=== PATIENT | male | born 1995 | race African-American/Black ===

== ENCOUNTER 2016-07-12 14:21 | Emergency (ER) | payer SELFPAY ==
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
[2016-07-12 14:52] LABS: ABSOLUTE EOSINOPHILS # (AUTO) 0.1 10^3/uL (0.0-0.6); ABSOLUTE LYMPHOCYTES (AUTO) 2.4 10^3/uL (0.5-4.7); ABSOLUTE MONOCYTES (AUTO) 0.8 10^3/uL (0.1-1.4); ABSOLUTE NEUT (AUTO) 9.7 10^3/uL (1.7-8.2); BASOPHILS % (AUTO) 0.3 % (0-2); EOSINOPHILS % (AUTO) 0.9 % (0-6); HEMATOCRIT 41.4 % (37.9-51.0); HEMOGLOBIN 13.4 g/dL (13.5-17.0); HGB HCT DIFFERENCE -1.2; LYMPHOCYTES % (AUTO) 18.5 % (13-45); MEAN CORPUSCULAR HEMOGLOBIN 23.8 pg (27.0-33.4); MEAN CORPUSCULAR HGB CONC 32.3 g/dL (32.0-36.0); MEAN CORPUSCULAR VOLUME 74 fl (80-97); MONOCYTES % (AUTO) 5.9 % (3-13); RED BLOOD COUNT 5.61 10^6/uL (4.35-5.55); SEGMENTED NEUTROPHILS % (AUTO) 74.4 % (42-78)
--- NOTE | 2016-07-12 15:01 | ER Document Report ---
ED GI/ - General Chief Complaint: Abdominal Pain Stated Complaint: BODY ACHES Time seen by provider: 15:01 Mode of Arrival: Ambulatory Information source: Patient Notes: 20 yo morbidlhy obese, non smoking, non dm, non htn, non hyperlipedemic with no family hx of CAD male tried to go to work today but had to come to ER due to upper abdominal pain for 3 days, mild nausea today, right upper retrosternal chest pain intermitent since 12:00, each episode for 5 minutes. No aggrevating or alleviating sx. he also wants his right eye checked since he was messing around with girlfriend today he accidentally hit the door knob at 10 am. No fever. No recent travel, leg pain, or immobility. No shortness of breath. TRAVEL OUTSIDE OF THE [place] IN LAST 30 DAYS: No - Related Data Allergies/Adverse Reactions: No Known Allergies Allergy (Verified 07/12/16 14:28) Past Medical History - General Information source: Patient - Social History Smoking Status: Never Smoker Chew tobacco use (# tins/day): No Frequency of alcohol use: None Drug Abuse: None Lives with: Spouse/Significant other Family History: Reviewed & Not Pertinent, Other - gout Patient has suicidal ideation: No Patient has homicidal ideation: No - Medical History Medical History: Negative Renal/ Medical History: Denies: Hx Peritoneal Dialysis Surgical Hx: Negative - Immunizations Hx Diphtheria, Pertussis, Tetanus Vaccination: Yes Review of Systems - Review of Systems Constitutional: No symptoms reported EENT: No symptoms reported Cardiovascular: See HPI Respiratory: No symptoms reported Gastrointestinal: See HPI Genitourinary: No symptoms reported Male Genitourinary: No symptoms reported Musculoskeletal: No symptoms reported Skin: No symptoms reported Hematologic/Lymphatic: No symptoms reported Neurological/Psychological: No symptoms reported Physical Exam - Vital signs Vitals: Temp Pulse Resp BP Pulse Ox 98.8 F 98 18 146/89 H 98 07/12/16 14:25 07/12/16 14:25 07/12/16 14:25 07/12/16 14:25 07/12/16 14:25 Interpretation: Normal - General General appearance: Appears well, Alert In distress: None Notes: obese - HEENT Head: Normocephalic, Atraumatic Eyes: Normal Conjunctiva: Normal Pupils: PERRL Mucous membranes: Normal Pharynx: Normal Neck: Supple. No: Thyromegally - Respiratory Respiratory status: No respiratory distress Chest status: Nontender Breath sounds: Normal Chest palpation: Normal - Cardiovascular Rhythm: Regular Heart sounds: Normal auscultation Murmur: No - Abdominal Inspection: Normal Distension: No distension Bowel sounds: Normal Tenderness: Tender - upper abdomen, moreso RUQ and epigastric. No: Ndiaye's sign Organomegaly: No organomegaly. No: Hepatomegaly, Splenomegaly - Back Back: Normal, Nontender. No: CVA tenderness - Extremities General upper extremity: Normal inspection, Nontender, Normal color, Normal ROM , Normal temperature General lower extremity: Normal inspection, Nontender, Normal color, Normal ROM , Normal temperature, Normal weight bearing. No: Ai's sign - Neurological Neuro grossly intact: Yes Cognition: Normal Orientation: AAOx4 [place] Coma Scale Eye Opening: Spontaneous Nathaniel Coma Scale Verbal: Oriented [place] Coma Scale Motor: Obeys Commands [place] Coma Scale Total: 15 Speech: Normal Motor strength normal: LUE, RUE, LLE, RLE Sensory: Normal - Psychological Associated symptoms: Normal affect, Normal mood - Skin Skin Temperature: Warm Skin Moisture: Dry Skin Color: Normal Skin irregularity: negative: Rash Course - Re-evaluation Re-evalutation: 07/12/16 16:[address] agee , EKG NSR, discussed case with him, referring for outpt Hida Scan, return if worse. Labs negative and chest x-ray is negative 07/12/16 16:47 - Vital Signs Vital signs: Temp Pulse Resp BP Pulse Ox 98.7 F 86 18 151/93 H 99 07/12/16 17:27 07/12/16 17:27 07/12/16 17:27 07/12/16 17:27 07/12/16 17:27 - Laboratory Result Diagrams: 07/12/16 14:35 07/12/16 14:35 Laboratory results interpreted by me: 07/12/16 07/12/16 14:35 14:35 WBC 13.0 H RBC 5.61 H Hgb 13.4 L MCV 74 L MCH 23.8 L RDW 16.0 H Absolute Neutrophils 9.7 H Sodium 147.0 H Carbon Dioxide 31 H Glucose 116 H Calcium 10.4 H Discharge - Discharge Clinical Impression: upper abdominal pain, Fatty liver Chest pain Qualifiers: Chest pain type: unspecified Qualified Code(s): R07.9 - Chest pain, unspecified Condition: Stable Disposition: HOME, SELF-CARE Instructions: Evaluation of Upper Abdominal Pain ([facility]), Chest Pain of Unclear Cause ([facility]), Contusion ([facility]), Family Physicians / Practices, Gastroenterology Additional Instructions: to er if worse outpatient HIDA scan with ejection fraction to evaluate the gallbladder functioning see outpatient surgeon if your gallbladder does not function well see lapel baster if you persist having upper abdominal pain low fat diet, eat few calories daily to lose weight see family practice doctor for your care Please complete the patient satisfaction survey if you get one, and return it.. If you do not receive a survey, then you can go to the [facility] website, [email or web address] and place your comments about your very good care. Thank you very much. It was a pleasure being your medical provider today. Forms: Return to Work, Follow-Up Outpatient Testing
[2016-07-12 15:10] LABS: ALANINE AMINOTRANSFERASE 59 U/L (21-72); ALBUMIN 4.5 g/dL (3.5-5.0); ALKALINE PHOSPHATASE 82 U/L (38-126); ANION GAP 12 (5-19); ASPARTATE AMINO TRANSFERASE 34 U/L (17-59); BILIRUBIN,TOTAL 0.7 mg/dL (0.2-1.3); BLOOD UREA NITROGEN 11 mg/dL (7-20); CALCIUM 10.4 mg/dL (8.4-10.2); CARBON DIOXIDE 31 mmol/L (22-30); CHLORIDE 104 mmol/L (98-107); CREATININE RESULT 0.86 mg/dL (0.52-1.25); GLUCOSE 116 mg/dL (75-110); LIPASE 68.6 U/L (23-300); POTASSIUM 4.2 mmol/L (3.6-5.0); TOTAL PROTEIN 7.8 g/dL (6.3-8.2)
[2016-07-12 15:33] LABS: APPEARANCE,URINE CLEAR; BILIRUBIN,URINE NEGATIVE (NEGATIVE); GLUCOSE, URINE NEGATIVE (NEGATIVE); KETONES,URINE NEGATIVE (NEGATIVE); LEUKOCYTE ESTERASE,URINE NEGATIVE (NEGATIVE); NITRITE,URINE NEGATIVE (NEGATIVE); PROTEIN,URINE NEGATIVE (NEGATIVE); URINE SPECIFIC GRAVITY 1.009; UROBILINOGEN,URINE NEGATIVE mg/dL (<2.0)
[2016-07-12 15:48] LABS: URINE BARBITURATES SCREEN NEGATIVE; URINE METHADONE SCREEN NEGATIVE; URINE OPIATES LOW NEGATIVE; URINE PHENCYCLIDINE SCREEN NEGATIVE
[2016-07-12 17:33] VITALS: BP 151/93
--- NOTE | 2016-07-13 09:22 | EKG REPORT ---
SEVERITY:- NORMAL ECG - SINUS RHYTHM : Confirmed by: Jae Casey MD 13-Jul-2016 09:22:08
== END 2016-07-12 17:27 | disposition home or self-care (01) ==
LOC: ER 14:21
DX: K76.0 Fatty (change of) liver, not elsewhere classified (principal); R10.10 Upper abdominal pain, unspecified; R07.9 Chest pain, unspecified; E66.01 Morbid (severe) obesity due to excess calories; Z68.43 Body mass index [BMI] 50.0-59.9, adult; R11.0 Nausea
CPT/HCPCS: 36415; 71020; 76705; 80053; 80307; 81001; 83690; 84484; 85025; 93005; 93010; 99285

== ENCOUNTER 2017-01-12 12:56 | Emergency (ER) | payer OTHER ==
--- NOTE | 2017-01-12 13:42 | ER Document Report ---
ED General - General Chief Complaint: Feet Swelling Stated Complaint: FEET SWELLING Time Seen by Provider: 01/12/17 13:31 Mode of Arrival: Ambulatory Information source: Patient Notes: 21-year-old male presents with complains of bilateral lower extremity edema of 2 week duration. Patient denies any DVT PE risk factors. Patient notes symptoms worsen after standing on his feet for 12 hours and then improved when he is lying flat. TRAVEL OUTSIDE OF THE [place] IN LAST 30 DAYS: No - HPI Onset: Other - 2 weeks duration Onset/Duration: Waxing and waning Quality of pain: Sharp Severity: Mild Pain Level: 1 Associated symptoms: Leg swelling Exacerbated by: Standing, Walking Relieved by: Supine Similar symptoms previously: Yes Recently seen / treated by doctor: No - Related Data Allergies/Adverse Reactions: No Known Allergies Allergy (Verified 01/12/17 13:22) Past Medical History - Social History Smoking Status: Never Smoker Cigarette use (# per day): No Chew tobacco use (# tins/day): No Smoking Education Provided: No Frequency of alcohol use: None Drug Abuse: None Family History: Reviewed & Not Pertinent, Other - gout Patient has suicidal ideation: No Patient has homicidal ideation: No Renal/ Medical History: Denies: Hx Peritoneal Dialysis Surgical Hx: Negative - Immunizations Hx Diphtheria, Pertussis, Tetanus Vaccination: Yes Review of Systems - Review of Systems Notes: REVIEW OF SYSTEMS: CONSTITUTIONAL : Denies fever, chills, or sweats. Denies recent illness. EENT: Denies eye, ear, throat, or mouth pain or symptoms. Denies nasal or sinus congestion or discharge. Denies throat, tongue, or mouth swelling or difficulty swallowing. CARDIOVASCULAR: Denies chest pain. Denies palpitations or racing or irregular heart beat. Admits to bilateral ankle edema foot edema RESPIRATORY: Denies cough, cold, or chest congestion. Denies shortness of breath, difficulty breathing, or wheezing. GASTROINTESTINAL: Denies abdominal pain or distention. Denies nausea, vomiting , or diarrhea. Denies blood in vomitus, stools, or per rectum. Denies black, tarry stools. Denies constipation. GENITOURINARY: Denies difficulty urinating, painful urination, burning, frequency, blood in urine, or discharge. MUSCULOSKELETAL: Denies back or neck pain or stiffness. Denies joint pain or swelling. SKIN: Denies rash, lesions or sores. HEMATOLOGIC : Denies easy bruising or bleeding. LYMPHATIC: Denies swollen, enlarged glands. NEUROLOGICAL: Admits to feeling foot fall asleep when there is swelling PSYCHIATRIC: Denies anxiety or stress. Denies depression, suicidal ideation, or homicidal ideation. ALL OTHER SYSTEMS REVIEWED AND NEGATIVE. Dictation was performed using [employer] voice recognition software PHYSICAL EXAMINATION: GENERAL: Obese male well-appearing HEAD: Atraumatic, normocephalic. EYES: Pupils equal round and reactive to light, extraocular movements intact, sclera anicteric, conjunctiva are normal. ENT: Nares patent, oropharynx clear without exudates. Moist mucous membranes. NECK: Normal range of motion, supple without lymphadenopathy LUNGS: Breath sounds clear to auscultation bilaterally and equal. No wheezes rales or rhonchi. HEART: Regular rate and rhythm without murmurs ABDOMEN: Soft, nontender, nondistended abdomen. No guarding, no rebound. No masses appreciated. Musculoskeletal: Normal range of motion, no pitting or edema. No cyanosis. NEUROLOGICAL: Cranial nerves grossly intact. Normal speech, normal gait. Normal sensory, motor exams PSYCH: Normal mood, normal affect. SKIN: Mild +1 edema bilateral lower extremities Physical Exam - Vital signs Vitals: Temp Pulse Resp BP Pulse Ox 98.5 F 101 H 22 H 154/97 H 96 01/12/17 13:00 01/12/17 13:00 01/12/17 13:00 01/12/17 13:00 01/12/17 13:00 Course - Re-evaluation Re-evalutation: 01/12/17 13:54 Patient has no respiratory issues vital signs are stable I believe this is more due to venous stasis issues however x-rays pending at this time 01/12/17 14:17 Chest x-ray noted no congestive heart failure no effusion. I believe his complaints are secondary to venous stasis. Instructions have been provided to the patient I do not believe he requires any medication or intervention at this time After performing a Medical Screening Examination, I estimate there is LOW risk for RUPTURED ESOPHAGUS, PNEUMOTHORAX, PULMONARY EMBOLISM, ACUTE CORONARY SYNDROME, OR THORACIC AORTIC DISSECTION, thus I consider the discharge disposition reasonable. I have reevaluated this patient multiple times and no significant life threatening changes are noted. The patient and I have discussed the diagnosis and risks, and we agree with discharging home with close follow-up. We also discussed returning to the Emergency Department immediately if new or worsening symptoms occur. We have discussed the symptoms which are most concerning (e.g., bloody sputum, worsening pain or shortness of breath) that necessitate immediate return. - Vital Signs Vital signs: Temp Pulse Resp BP Pulse Ox 98.5 F 101 H 22 H 154/97 H 96 01/12/17 13:00 01/12/17 13:00 01/12/17 13:00 01/12/17 13:01/12/17 13:00 Discharge - Discharge Clinical Impression: Peripheral edema Condition: Stable Disposition: HOME, SELF-CARE Instructions: Edema, Peripheral ([facility]), Dependent Edema ([facility]) Additional Instructions: Follow up with your physician tomorrow for further care or return to the ED IMMEDIATELY if symptoms worsen or new concerns occur. If you cannot afford to follow up with your primary care physician a list of low cost clinics have been provided at the end of your discharge papers as well.
--- NOTE | 2017-01-12 14:15 | RADIOLOGY REPORT (SQ) ---
EXAM DESCRIPTION: CHEST PA/LAT COMPLETED DATE/TIME: 01/12/2017 2:05 pm REASON FOR STUDY: peripheral edema COMPARISON: 07/12/2016. EXAM PARAMETERS: NUMBER OF VIEWS: two views TECHNIQUE: Digital Frontal and Lateral radiographic views of the chest acquired. RADIATION DOSE: NA LIMITATIONS: none FINDINGS: LUNGS AND PLEURA: No opacities, masses or pneumothorax. No pleural effusion. MEDIASTINUM AND HILAR STRUCTURES: No masses or contour abnormalities. HEART AND VASCULAR STRUCTURES: Heart normal size. No evidence for failure. BONES: No acute findings. HARDWARE: None in the chest. OTHER: No other significant finding. IMPRESSION: NO SIGNIFICANT RADIOGRAPHIC FINDING IN THE CHEST. TECHNICAL DOCUMENTATION: JOB ID: [id number] [employer]- All Rights Reserved
[2017-01-12 14:48] VITALS: BP 150/83
== END 2017-01-12 14:51 | disposition home or self-care (01) ==
LOC: ER 12:56
DX: R60.9 Edema, unspecified (principal)
CPT/HCPCS: 71020; 99283

== ENCOUNTER 2017-02-16 18:51 | Emergency (ER) | payer OTHER ==
--- NOTE | 2017-02-16 20:21 | ER Document Report ---
ED ENT - General Chief Complaint: Sore Throat Stated Complaint: SORE THROAT Time Seen by Provider: 02/16/17 20:13 Mode of Arrival: Ambulatory Information source: Patient Notes: Patient is a morbidly obese 21-year-old black male comes emergency room 3 day onset of upper respiratory symptomatology. Patient states that he has had congestion runny nose cough with ear pain bilaterally and fatigue. 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 He states he is around all kinds of sick people. Denies any other medical problems and also denies any smoking. TRAVEL OUTSIDE OF THE [place] IN LAST 30 DAYS: No - HPI Patient complains to provider of: Ear problem, Nose problem, Throat problem Onset: Other Onset/Duration: Gradual - 3 days ago Quality of pain: Achy, Sharp Severity: Moderate Pain Level: 2 Context: denies: Allergies, Recent Illness Location of pain: Ears, Nose, Sinus, Throat Associated symptoms: Chills, Cough, Ear pain, Fever, Headache, Runny nose, Sinus pain, Sinus drainage, Sore throat, Swollen glands. denies: Neck pain, Stiff neck Similar symptoms previously: No Recently seen / treated by doctor: No - Related Data Allergies/Adverse Reactions: No Known Allergies Allergy (Verified 02/16/17 18:54) Past Medical History - Social History Smoking Status: Never Smoker Chew tobacco use (# tins/day): No Frequency of alcohol use: None Drug Abuse: None Family History: Reviewed & Not Pertinent, Other - gout Renal/ Medical History: Denies: Hx Peritoneal Dialysis Surgical Hx: Negative - Immunizations Hx Diphtheria, Pertussis, Tetanus Vaccination: Yes Review of Systems - Review of Systems Constitutional: Chills, Fever, Weakness EENT: Ear pain, Nose pain, Nose congestion, Nose discharge, Sinus pressure, Sinus discharge, Throat pain. denies: Throat swelling, Mouth swelling, Dental problem Cardiovascular: No symptoms reported Respiratory: Cough, Wheezing. denies: Hurts to breathe, Hemoptysis, Short of breath, Sputum, Stridor Gastrointestinal: No symptoms reported Genitourinary: No symptoms reported Male Genitourinary: No symptoms reported Musculoskeletal: No symptoms reported Skin: No symptoms reported Hematologic/Lymphatic: No symptoms reported Neurological/Psychological: No symptoms reported -: Yes All other systems reviewed and negative Physical Exam - Vital signs Vitals: Temp Pulse Resp BP Pulse Ox 98.1 F 108 H 20 163/100 H 96 10/07/17 18:55 02/16/17 18:55 02/16/17 18:55 02/16/17 18:55 02/16/17 18:55 - Notes Notes: Uncomfortable appearing - General General appearance: Other - Ill-appearing In distress: None - HEENT Head: Normocephalic, Atraumatic Ears: No: Normal External canal: Erythema, Swollen Tympanic membrane: Bulging, Injected Sinus: Frontal, Maxillary, Swelling, Tenderness Nasal: Clear rhinorrhea Mouth/Lips: Normal Mucous membranes: Normal, Moist Pharynx: Erythema, Exudate, Post nasal drainage. No: Peritonsillar abscess, Retropharyngeal abscess, Tonsillar hypertrophy, Uvular edema, Potential airway comprom. Neck: Normal, Anterior cervical chain, Lymphadenopathy, Supple. No: Meningismus , Neck mass - Respiratory Respiratory status: No respiratory distress Chest status: Nontender Breath sounds: Decreased air movement, Nonproductive cough, Wheezing Chest palpation: Normal - Cardiovascular Rhythm: Tachycardia Heart sounds: Normal auscultation Murmur: No - Neurological Neuro grossly intact: Yes Cognition: Normal Orientation: AAOx4 [place] Coma Scale Eye Opening: Spontaneous [place] Coma Scale Verbal: Oriented [place] Coma Scale Motor: Obeys Commands [place] Coma Scale Total: 15 Speech: Normal - Skin Skin Moisture: Dry Skin Color: Normal, [place] Skin Turgor: Elastic Course - Vital Signs Vital signs: Temp Pulse Resp BP Pulse Ox 98.1 F 108 H 20 163/100 H 96 02/16/17 18:55 02/16/17 18:55 02/16/17 18:55 02/16/17 18:55 02/16/17 18:55 - Laboratory Laboratory results interpreted by me: Patient's influenza was negative strep was negative mono was negative Discharge - Discharge Clinical Impression: Sinusitis chronic, frontal Upper respiratory infection Qualifiers: URI type: unspecified URI Qualified Code(s): J06.9 - Acute upper respiratory infection, unspecified Asthma Qualifiers: Asthma severity: mild Asthma persistence: unspecified Asthma complication type : uncomplicated Qualified Code(s): J45.909 - Unspecified asthma, uncomplicated Condition: Stable Disposition: HOME, SELF-CARE Instructions: Acetaminophen, Sore Throat ([facility]), Upper Respiratory Illness ([facility]) , Fever ([facility]) Additional Instructions: Sinusitis You have sinusitis, an infection of the sinus cavities of the face. The sinuses are air-filled chambers which open into the inside of the nose. Bacteria and pus fill a sinus, causing pain, drainage, and fever. Sinusitis is treated with antibiotics. Often, expectorants (to thin the sinus mucous) or decongestants (to reduce swelling) are prescribed as well. Healing requires seven to 10 days. Avoid chemical fumes, pollens, dusts, and smoke (especially cigarette smoke ). Keep the air humidified in your bedroom and work area and take plenty of liquids by mouth. This condition can be serious if the infection spreads. If your symptoms worsen, or if you develop severe headache, high fever, stiff neck, or a rash, you must call the doctor or return for re-evaluation. Asthma You have been diagnosed as having asthma. This is a condition where there is episodic tightness in the bronchial tubes. Allergies, infections, and polluted or cold air may be contributing factors. Emergency treatment of a severe asthma attack may include adrenaline shots , or bronchodilator aerosol. You may feel lightheaded, have a decreased exercise tolerance and a rapid pulse for an hour or two. Rest and get plenty of fluids. Home treatment of asthma requires bronchodilator drugs. These can be administered by injection, inhalation, or by mouth. Antibiotics and corticosteroids may be required for some patients. You should avoid chemical fumes, dusts, pollens, and exercising in very cold or dry air. If you smoke, stop!! If you develop a fever, increased wheezing, chest pain, or severe shortness of breath, you should contact the doctor immediatelyUpper Respiratory Illness You have a viral infection of the respiratory passages -- a "cold." This common infection causes nasal congestion, drainage, and often sore throat and cough. It is caused by a virus and is highly contagious. The disease usually lasts a week or more, though the worst symptoms are usually over in 3 or 4 days. There is no "cure" for the viral infection -- it must run its course. If there is a complication, such as bacterial infection in the nose, sinuses, middle ear, or bronchial tubes, antibiotics may be required, but antibiotics won 't affect the virus. If you smoke, you should STOP!! Drink plenty of fluids. A humidifier may help. An expectorant medication or decongestant may make you more comfortable. Use acetaminophen or ibuprofen for fever or aches. See the doctor if fever persists over two or three days, if there is any significant worsening of your symptoms, or if you simply fail to improve as expected. Home rest. Medications prescribed. Tylenol alternating with Motrin every 4-6 hours to keep fevers down. You can use nasal saline 3-4 times a day to keep the nose moist and secretions thin. As we discussed you may try using Afrin nasal spray only at night before bed 2 sprays on each side of the nose and do not use it again for 24 hours. Use this only sparingly only for 3 days total. This will allow you to get some sleep from the drainage or having the back your throat until such time as the medications can take over and help you. Should you have any concerns or problems return to ER for a recheck. Prescriptions: Azithromycin [Zithromax 250 mg Tablet] 250 mg PO ASDIR #6 tablet Chlorpheniramine Maleate [Chlor-Trimeton 8 mg Tablet] 1 tab PO BID PRN #1 pkg PRN Reason: Prednisone [Sterapred Ds] 10 mg PO DAILY 6 Days #1 tab.ds.pk Forms: Elevated Blood Pressure
[2017-02-16 21:44] VITALS: BP 132/82
== END 2017-02-16 21:39 | disposition home or self-care (01) ==
LOC: ER 18:51
DX: J32.1 Chronic frontal sinusitis (principal); J06.9 Acute upper respiratory infection, unspecified; J45.909 Unspecified asthma, uncomplicated; R09.81 Nasal congestion; R09.89 Other specified symptoms and signs involving the circulatory and respiratory systems; R05 Cough; H92.03 Otalgia, bilateral
CPT/HCPCS: 36415; 86308; 87070; 87804; 87880; 99283

== ENCOUNTER 2017-07-27 14:13 | Inpatient (IN) | payer SELFPAY ==
[2017-07-27] MEDS ORDERED: NORMAL SALINE 1000 ML 1,000 ML IV ONE ×3 (14:50→17:30)
--- NOTE | 2017-07-27 14:54 | ER Document Report ---
ED Medical Screen (RME) - General Mode of Arrival: Ambulatory Information source: Patient TRAVEL OUTSIDE OF THE [place] IN LAST 30 DAYS: No <THERESA GEORGE - Last Filed: 07/27/17 14:49> <CINDY LÓPEZ - Last Filed: 07/27/17 18:07> - General Chief Complaint: Flank Pain Stated Complaint: BLOOD IN URINE Time Seen by Provider: 07/27/17 14:42 Notes: 21 y.o male with no known medical Hx and no daily home medications presents to the ED with hematuria of onset yesterday, dysuria for 3-4 days and urinary frequency. Patient also complains of dry mouth/constant thirst and flank pain. He denies any abd pain. Pt is taking Azo but states that he had hematuria before he started taking the Azo. Point of care blood glucose level is 584. I have greeted and performed a rapid initial assessment of the patient. A comprehensive ED assessment and evaluation of the patient, analysis of test results, and completion of the medical decision making process will be conducted by additional ED providers. (THERESA GEORGE) - Related Data Allergies/Adverse Reactions: No Known Allergies Allergy (Verified 02/16/17 18:54) Past Medical History - General Information source: Patient - Social History Chew tobacco use (# tins/day): No Frequency of alcohol use: None Drug Abuse: None Renal/ Medical History: Denies: Hx Peritoneal Dialysis - Immunizations Hx Diphtheria, Pertussis, Tetanus Vaccination: Yes History of Influenza Vaccine for 02/2017 - 07/2017 Season: No <THERESA GEORGE - Last Filed: 07/27/17 14:49> Review of Systems - Review of Systems Constitutional: No symptoms reported EENT: See HPI, Other - Dry mouth/ constant thirst Cardiovascular: No symptoms reported Respiratory: No symptoms reported Gastrointestinal: See HPI. denies: Abdominal pain Genitourinary: See HPI, Dysuria, Frequency, Flank pain, Hematuria Male Genitourinary: See HPI Musculoskeletal: No symptoms reported Skin: No symptoms reported Hematologic/Lymphatic: No symptoms reported Neurological/Psychological: No symptoms reported -: Yes All other systems reviewed and negative <THERESA GEORGE - Last Filed: 07/27/17 14:49> Physical Exam <THERESA GEORGE - Last Filed: 07/27/17 14:49> <CINDY LÓPEZ - Last Filed: 07/27/17 18:07> - Vital signs Vitals: Temp Pulse Resp BP Pulse Ox 97.9 F 110 H 24 H 155/117 H 97 07/27/17 14:19 07/27/17 14:19 07/27/17 14:19 07/27/17 14:19 07/27/17 14:19 - Notes Notes: Physical Exam: General: Alert, appears well. Morbidly obese. Point of care blood glucose level is 584. HEENT: Normocephalic. Atraumatic. PERRLA. Extraocular movements intact. Oropharynx clear. Neck: Supple. Respiratory: No respiratory distress. Abdominal: Normal Inspection. No distension. Extremities: Moves all four extremities. Neurological: Normal cognition. AAOx4. Normal speech. Psychological: Normal affect. Normal Mood. Skin: Warm. Dry. Normal color. (THERESA GEORGE) Course - Laboratory Result Diagrams: 07/27/17 15:36 07/27/17 15:36 <CINDY LÓPEZ - Last Filed: 07/27/17 18:07> - Vital Signs Vital signs: Temp Pulse Resp BP Pulse Ox 97.9 F 110 H 19 163/110 H 100 07/27/17 14:19 07/27/17 14:19 07/27/17 16:11 07/27/17 16:15 07/27/17 16:15 - Laboratory Laboratory results interpreted by me: 07/27/17 07/27/17 07/27/17 15:17 15:36 15:36 RBC 6.30 H MCV 71 L MCH 23.1 L RDW 18.7 H Sodium 133.7 L Chloride 96 L Carbon Dioxide 15 L Anion Gap 23 H Glucose 585 H* Urine Glucose (UA) >=500 H Urine Ketones 20 H Urine Nitrite POSITIVE H Doctor's Discharge <THERESA GEORGE - Last Filed: 07/27/17 14:49> <CINDY LÓPEZ - Last Filed: 07/27/17 18:07> - Discharge Clinical Impression: New-onset diabetic, Morbid obesity, Hyperglycemia, Dehydration Hypertension Qualifiers: Hypertension type: unspecified Qualified Code(s): I10 - Essential (primary) hypertension Condition: Stable Disposition: ADMITTED INPATIENT Scribe Documentation - Scribe Written by Scribe:: Liza Woodard 07/27/17 1457 acting as scribe for :: Long <THERESA GEORGE - Last Filed: 07/27/17 14:49>
--- NOTE | 2017-07-27 15:29 | ER Document Report ---
ED General - General Chief Complaint: Flank Pain Stated Complaint: BLOOD IN URINE Time Seen by Provider: 07/27/17 14:42 Mode of Arrival: Ambulatory Information source: Patient Notes: 21 yo male with polyuria every hour, polydipsia for a week. Thought it was UTI, took cranberry juice and pyridium. Thinks he had blood in his urine. Coordination off with nausea. No vomiting. Low back pain. No abd. pain. No PCP. FH: DM, HTN. Acucheck in [facility]. TRAVEL OUTSIDE OF THE [place] IN LAST 30 DAYS: No - Related Data Allergies/Adverse Reactions: No Known Allergies Allergy (Verified 02/16/17 18:54) Past Medical History - General Information source: Patient - Social History Smoking Status: Never Smoker Chew tobacco use (# tins/day): No Frequency of alcohol use: None Drug Abuse: None Lives with: Parents - grandparents Family History: DM, Hypertension, Other - gout Patient has suicidal ideation: No Patient has homicidal ideation: No - Medical History Notes: obeisty Renal/ Medical History: Denies: Hx Peritoneal Dialysis Surgical Hx: Negative - Immunizations Hx Diphtheria, Pertussis, Tetanus Vaccination: Yes Review of Systems - Review of Systems Constitutional: No symptoms reported EENT: No symptoms reported Cardiovascular: No symptoms reported Respiratory: Short of breath - mild Gastrointestinal: See HPI Genitourinary: No symptoms reported Male Genitourinary: No symptoms reported Musculoskeletal: No symptoms reported Skin: No symptoms reported Hematologic/Lymphatic: No symptoms reported Neurological/Psychological: See HPI Physical Exam - Vital signs Vitals: Temp Pulse Resp BP Pulse Ox 97.9 F 110 H 24 H 155/117 H 97 07/27/17 14:19 07/27/17 14:19 07/27/17 14:19 07/27/17 14:19 07/27/17 14:19 Interpretation: Normal - Notes Notes: morbid obeisty, smell ketones on breath - General General appearance: Alert In distress: None Notes: looks dry - HEENT Head: Normocephalic, Atraumatic Eyes: Normal Conjunctiva: Normal Pupils: PERRL Mucous membranes: Dry Neck: Supple - Respiratory Respiratory status: No respiratory distress Chest status: Nontender Breath sounds: Normal Chest palpation: Normal - Cardiovascular Rhythm: Regular, Tachycardia Heart sounds: Normal auscultation Murmur: No - Abdominal Inspection: Normal Distension: No distension Bowel sounds: Normal Tenderness: Nontender Organomegaly: No organomegaly - Back Back: Normal, Nontender. No: CVA tenderness - Extremities General upper extremity: Normal inspection, Nontender, Normal color, Normal ROM , Normal temperature General lower extremity: Normal inspection, Nontender, Normal color, Normal ROM , Normal temperature, Normal weight bearing. No: Ai's sign - Neurological Neuro grossly intact: Yes Cognition: Normal Orientation: AAOx4 Nathaniel Coma Scale Eye Opening: Spontaneous Homer Coma Scale Verbal: Oriented Homer Coma Scale Motor: Obeys Commands Homer Coma Scale Total: 15 Speech: Normal Motor strength normal: LUE, RUE, LLE, RLE Sensory: Normal - Psychological Associated symptoms: Normal affect, Normal mood - Skin Skin Temperature: Warm Skin Moisture: Dry Skin Color: Normal Skin irregularity: negative: Rash Course - Re-evaluation Re-evalutation: 07/27/17 15:57 right antecubital IV not infusing, would not flush. restarted in left volar wrist, running wide open. 07/27/17 17:24 glucose 585, anion gap 23, CO2 15. Dr. Kay will admit for new onset diabetes. wants insulin drip started at 2units/hour. Telemetry bed. Pt willing to be admitted. - Vital Signs Vital signs: Temp Pulse Resp BP Pulse Ox 97.9 F 110 H 19 163/110 H 100 07/27/17 14:19 07/27/17 14:19 07/27/17 16:11 07/27/17 16:15 07/27/17 16:15 - Laboratory Result Diagrams: 07/27/17 15:36 07/27/17 15:36 Laboratory results interpreted by me: 07/27/17 07/27/17 07/27/17 15:17 15:36 15:36 RBC 6.30 H MCV 71 L MCH 23.1 L RDW 18.7 H Sodium 133.7 L Chloride 96 L Carbon Dioxide 15 L Anion Gap 23 H Glucose 585 H* Urine Glucose (UA) >=500 H Urine Ketones 20 H Urine Nitrite POSITIVE H Discharge - Discharge Clinical Impression: New-onset diabetic, Morbid obesity, Hyperglycemia, Dehydration Hypertension Qualifiers: Hypertension type: unspecified Qualified Code(s): I10 - Essential (primary) hypertension Condition: Stable Admitting Provider: Hospitalist Unit Admitted: Telemetry
[2017-07-27 15:39] LABS: APPEARANCE,URINE CLEAR; BILIRUBIN,URINE NEGATIVE (NEGATIVE); GLUCOSE, URINE >=500 mg/dL (NEGATIVE); KETONES,URINE 20 mg/dL (NEGATIVE); LEUKOCYTE ESTERASE,URINE NEGATIVE (NEGATIVE); NITRITE,URINE POSITIVE (NEGATIVE); PROTEIN,URINE NEGATIVE (NEGATIVE); URINE SPECIFIC GRAVITY 1.022; UROBILINOGEN,URINE NEGATIVE mg/dL (<2.0)
[2017-07-27 15:40] LABS: COLOR,URINE DARK YELLOW
[2017-07-27 15:49] LABS: ABSOLUTE EOSINOPHILS # (AUTO) 0.1 10^3/uL (0.0-0.6); ABSOLUTE LYMPHOCYTES (AUTO) 1.8 10^3/uL (0.5-4.7); ABSOLUTE MONOCYTES (AUTO) 0.9 10^3/uL (0.1-1.4); ABSOLUTE NEUT (AUTO) 6.5 10^3/uL (1.7-8.2); BASOPHILS % (AUTO) 0.4 % (0-2); EOSINOPHILS % (AUTO) 1.2 % (0-6); HEMATOCRIT 44.9 % (37.9-51.0); HEMOGLOBIN 14.5 g/dL (13.5-17.0); LYMPHOCYTES % (AUTO) 19.1 % (13-45); MEAN CORPUSCULAR HEMOGLOBIN 23.1 pg (27.0-33.4); MEAN CORPUSCULAR HGB CONC 32.4 g/dL (32.0-36.0); MEAN CORPUSCULAR VOLUME 71 fl (80-97); MONOCYTES % (AUTO) 9.5 % (3-13); PLATELET COUNT 222 10^3/uL (150-450); RED CELL DISTRIBUTION WIDTH 18.7 % (11.5-14.0); SEGMENTED NEUTROPHILS % (AUTO) 69.8 % (42-78); TOTAL CELLS COUNTED % (AUTO) 100 %; WHITE BLOOD COUNT 9.3 10^3/uL (4.0-10.5)
[2017-07-27 16:21] LABS: ALANINE AMINOTRANSFERASE 64 U/L (21-72); ALBUMIN 4.6 g/dL (3.5-5.0); ALKALINE PHOSPHATASE 103 U/L (38-126); ASPARTATE AMINO TRANSFERASE 28 U/L (17-59); BILIRUBIN,DIRECT 0.1 mg/dL (0.0-0.4); BILIRUBIN,TOTAL 0.6 mg/dL (0.2-1.3); BLOOD UREA NITROGEN 9 mg/dL (7-20); POTASSIUM 4.5 mmol/L (3.6-5.0); TOTAL PROTEIN 6.9 g/dL (6.3-8.2)
[2017-07-27 16:26] LABS: CARBON DIOXIDE 15 mmol/L (22-30); CHLORIDE 96 mmol/L (98-107); SODIUM 133.7 mmol/L (137-145)
[2017-07-27 16:37] LABS: ANION GAP 23 (5-19)
[2017-07-27 16:40] LABS: GLUCOSE 585 mg/dL (75-110)
[2017-07-27] MEDS ORDERED: GLUCAGON,HUMAN RECOMB 1 MG INJ IM PRN (17:27)
[2017-07-27] MEDS ORDERED: DEXTROSE 50%-WATER 25 GM/50 ML DISP.SYRIN IV PRN ×2 (17:27)
[2017-07-27] MEDS ORDERED: DEXTROSE 40% GEL 15 GM TUBE PO PRN ×2 (17:27)
[2017-07-27] MEDS ORDERED: IPRATROPIUM/ALBUTEROL 0.5-2.5 MG/3 ML AMPUL NEB ONE (17:38)
[2017-07-27] MEDS ORDERED: TEMAZEPAM 7.5 MG CAPSULE PO PRN (17:38)
[2017-07-27] MEDS ORDERED: ACETAMINOPHEN 325 MG TABLET PO PRN (17:38)
[2017-07-27] MEDS ORDERED: OXYCODONE-ACETAMINOPHEN 5-325 MG TABLET PO PRN (17:38)
--- NOTE | 2017-07-27 18:16 | PDOC H&P ---
History of Present Illness Admission Date/PCP: 07/27/17 Patient complains of: Increased thirst dry mouth and polyuria History of Present Illness: ELMER STUART is a 21 year old male Who presents to the emergency room with polyuria as well as polydipsia and dry mouth which started about a week ago. There is no dysuria or any penile discharge. Patient denies any abdominal pain although he has had some nausea. There is no vomiting dizziness or diaphoresis. He decided to come get it checked out in the emergency room wound he was found to be in diabetic ketoacidosis with blood sugar of 500 and with high anion gap acidosis. He denies any prior medical history. Patient is morbidly obese and he gives a family history of his grandmother being diabetic. Past Medical History Medical History: None Past Surgical History Past Surgical History: Reports: None Social History Information Source: Patient Lives with: Parents - grandparents Smoking Status: Never Smoker Drugs: None Hx Prescription Drug Abuse: No - Advance Directive Resuscitation Status: Full Code Family History Family History: None, DM, Hypertension, Other - gout Parental Family History Reviewed: Yes - Grandmother had diabetes Children Family History Reviewed: No Sibling(s) Family History Reviewed.: No Medication/Allergy Home Medications: No Home Medications 07/27/17 Allergies/Adverse Reactions: No Known Allergies Allergy (Verified 02/16/17 18:54) Review of Systems All systems: reviewed and no additional remarkable complaints except as stated Endocrine: PRESENT: polydipsia, polyphagia, polyuria Physical Exam Vital Signs: Temp Pulse Resp BP Pulse Ox 97.9 F 110 H 19 163/110 H 100 07/27/17 14:19 07/27/17 14:19 07/27/17 16:11 07/27/17 16:15 07/27/17 16:15 Intake & Output 07/26/17 07/27/17 07/28/17 06:59 06:59 06:59 Weight 191.2 kg General appearance: PRESENT: no acute distress, morbidly obese Head exam: PRESENT: atraumatic Mouth exam: PRESENT: dry mucosa Respiratory exam: PRESENT: clear to auscultation jose e. ABSENT: rales, rhonchi, wheezes GI/Abdominal exam: PRESENT: normal bowel sounds, soft. ABSENT: distended, guarding, mass, organolmegaly, rebound, tenderness Rectal exam: PRESENT: deferred Extremities exam: PRESENT: full ROM. ABSENT: calf tenderness, clubbing, pedal edema Musculoskeletal exam: PRESENT: ambulatory Neurological exam: PRESENT: alert, awake, oriented to person, oriented to place , oriented to time, oriented to situation, CN II-XII grossly intact. ABSENT: motor sensory deficit Psychiatric exam: PRESENT: appropriate affect, normal mood. ABSENT: homicidal ideation, suicidal ideation Results Laboratory Results: 07/27/17 15:36 07/27/17 15:36 07/27/17 07/27/17 07/27/17 15:17 15:36 15:36 WBC 9.3 RBC 6.30 H Hgb 14.5 Hct 44.9 MCV 71 L MCH 23.1 L MCHC 32.4 RDW 18.7 H Plt Count 222 Seg Neutrophils % 69.8 Lymphocytes % 19.1 Monocytes % 9.5 Eosinophils % 1.2 Basophils % 0.4 Absolute Neutrophils 6.5 Absolute Lymphocytes 1.8 Absolute Monocytes 0.9 Absolute Eosinophils 0.1 Absolute Basophils 0.0 Sodium 133.7 L Potassium 4.5 Chloride 96 L Carbon Dioxide 15 L Anion Gap 23 H BUN 9 Creatinine 0.59 Est GFR ( Amer) > 60 Est GFR (Non-Af Amer) > 60 Glucose 585 H* Calcium 10.0 Magnesium 1.7 Total Bilirubin 0.6 AST 28 ALT 64 Alkaline Phosphatase 103 Total Protein 6.9 Albumin 4.6 Urine Color DARK YELLOW Urine Appearance CLEAR Urine pH 5.0 Ur Specific [place] 1.022 Urine Protein NEGATIVE Urine Glucose (UA) >=500 H Urine Ketones 20 H Urine Blood NEGATIVE Urine Nitrite POSITIVE H Ur Leukocyte Esterase NEGATIVE Urine WBC (Auto) 0 Urine RBC (Auto) 0 Assessment & Plan - Diagnosis (1) DKA, type 1 Qualifiers: Diabetes mellitus complication detail: without coma Qualified Code(s): E10.10 - Type 1 diabetes mellitus with ketoacidosis without coma Is this a current diagnosis for this admission?: Yes Plan: Although unclear right now if this is a type 1 diabetes and is relatively young age I will classified as such at this moment. Patient will be placed on intravenous fluid as well as intravenous insulin. He is clearly insulin deficient given the high anion gap. He also has metabolic acidosis. He will need diabetic teaching and will also need social service help as he is currently uninsured. (2) Dehydration Is this a current diagnosis for this admission?: Yes Plan: We will give aggressive IV fluid resuscitation (3) Morbid obesity Is this a current diagnosis for this admission?: Yes Plan: Patient has been advised on the need to lose weight and he voices understanding - Time Time Spent: 30 to 50 Minutes Medications reviewed and adjusted accordingly: Yes Anticipated discharge: Home Within: within 72 hours - Inpatient Certification Based on my medical assessment, after consideration of the patient's comorbidities, presenting symptoms, or acuity I expect that the services needed warrant INPATIENT care.: Yes Medical Necessity: Need For IV Fluids - Need for intravenous insulin management
[2017-07-27] MEDS ORDERED: INSULIN REG, HUMAN 100 UNIT/ML 3 ML VIAL (PYX) ONE (18:41)
[2017-07-27] MEDS: NORMAL SALINE 100 ML with INSULIN REGULAR, HUMAN 100 UNIT IV PRN ×2 (18:43)
[2017-07-28 01:17] LABS: ANION GAP 18 (5-19); BLOOD UREA NITROGEN 9 mg/dL (7-20); CALCIUM 9.5 mg/dL (8.4-10.2); CARBON DIOXIDE 17 mmol/L (22-30); CHLORIDE 100 mmol/L (98-107); SODIUM 135.2 mmol/L (137-145)
[2017-07-28 01:27] LABS: GLUCOSE 406 mg/dL (75-110)
[2017-07-28] MEDS ORDERED: POTASSI CL 20 MEQ/D5-1/2NS 1L 1,000 ML IV ONE (02:00)
[2017-07-28 06:14] LABS: ABSOLUTE BASOPHILS # (AUTO) 0.1 10^3/uL (0.0-0.2); ABSOLUTE EOSINOPHILS # (AUTO) 0.2 10^3/uL (0.0-0.6); ABSOLUTE LYMPHOCYTES (AUTO) 2.6 10^3/uL (0.5-4.7); ABSOLUTE MONOCYTES (AUTO) 0.8 10^3/uL (0.1-1.4); ABSOLUTE NEUT (AUTO) 4.8 10^3/uL (1.7-8.2); BASOPHILS % (AUTO) 0.6 % (0-2); EOSINOPHILS % (AUTO) 2.1 % (0-6); HEMOGLOBIN 13.1 g/dL (13.5-17.0); MEAN CORPUSCULAR HEMOGLOBIN 22.9 pg (27.0-33.4); MEAN CORPUSCULAR HGB CONC 32.7 g/dL (32.0-36.0); MEAN CORPUSCULAR VOLUME 70 fl (80-97); MONOCYTES % (AUTO) 9.3 % (3-13); PLATELET COUNT 200 10^3/uL (150-450); RED BLOOD COUNT 5.73 10^6/uL (4.35-5.55); RED CELL DISTRIBUTION WIDTH 17.9 % (11.5-14.0); TOTAL CELLS COUNTED % (AUTO) 100 %; WHITE BLOOD COUNT 8.4 10^3/uL (4.0-10.5)
[2017-07-28 07:24] LABS: ANION GAP 18 (5-19); BLOOD UREA NITROGEN 6 mg/dL (7-20); CALCIUM 9.8 mg/dL (8.4-10.2); CARBON DIOXIDE 16 mmol/L (22-30); CHLORIDE 99 mmol/L (98-107); GLUCOSE 303 mg/dL (75-110); PHOSPHORUS 3.4 mg/dL (2.5-4.5); POTASSIUM 3.4 mmol/L (3.6-5.0); SODIUM 132.5 mmol/L (137-145)
[2017-07-28] MEDS: ONDANSETRON HCL INJ/PF 4 MG/2 ML SDV IV PRN ×2 (07:55→11:38)
[2017-07-28] MEDS ORDERED: INSULIN REG, HUMAN 100 UNIT/ML 3 ML VIAL (PYX) ONE (08:40)
[2017-07-28] MEDS: NORMAL SALINE 100 ML with INSULIN REGULAR, HUMAN 100 UNIT IV PRN ×2 (08:42)
[2017-07-28] MEDS: ENOXAPARIN SODIUM INJ 40 MG/0.4 ML DISP.SYRIN SUBCUT SCH (10:20)
--- NOTE | 2017-07-28 13:18 | PDOC PROGRESS REPORT ---
Subjective Progress Note for:: 07/28/17 Subjective:: Patient admitted with DKA, new onset diabetic Reason For Visit: DKA,NEW ONSET Physical Exam Vital Signs: Temp Pulse Resp BP Pulse Ox 98.6 F 106 H 20 135/66 H 97 07/28/17 12:47 07/28/17 12:47 07/28/17 12:47 07/28/17 12:47 07/28/17 12:47 Intake & Output 07/27/17 07/28/17 07/29/17 06:59 06:59 06:59 Intake Total 2500 Output Total 2000 Balance 500 Weight 193.9 kg General appearance: PRESENT: no acute distress Mouth exam: PRESENT: dry mucosa Neck exam: ABSENT: carotid bruit, JVD, lymphadenopathy, thyromegaly Respiratory exam: PRESENT: clear to auscultation jose e. ABSENT: rales, rhonchi, wheezes Cardiovascular exam: PRESENT: RRR. ABSENT: diastolic murmur, rubs, systolic murmur Pulses: PRESENT: normal dorsalis pedis pul GI/Abdominal exam: PRESENT: ascites Rectal exam: PRESENT: deferred Extremities exam: PRESENT: full ROM. ABSENT: calf tenderness, clubbing, pedal edema Neurological exam: PRESENT: alert, awake, oriented to person, oriented to place , oriented to time, oriented to situation, CN II-XII grossly intact. ABSENT: motor sensory deficit Skin exam: PRESENT: dry, intact, warm. ABSENT: cyanosis, rash Results Laboratory Results: 07/28/17 06:03 07/28/17 06:03 07/28/17 07/28/17 07/28/17 00:37 06:03 06:03 WBC 8.4 RBC 5.73 H Hgb 13.1 L Hct 40.0 MCV 70 L MCH 22.9 L MCHC 32.7 RDW 17.9 H Plt Count 200 Seg Neutrophils % 57.0 Lymphocytes % 31.0 Monocytes % 9.3 Eosinophils % 2.1 Basophils % 0.6 Absolute Neutrophils 4.8 Absolute Lymphocytes 2.6 Absolute Monocytes 0.8 Absolute Eosinophils 0.2 Absolute Basophils 0.1 Sodium 135.2 L 132.5 L Potassium 4.0 3.4 L Chloride 100 99 Carbon Dioxide 17 L 16 L Anion Gap 18 18 BUN 9 6 L Creatinine 0.64 0.61 Est GFR ( Amer) > 60 > 60 Est GFR (Non-Af Amer) > 60 > 60 Glucose 406 H* 303 H Calcium 9.5 9.8 Phosphorus 3.4 Assessment & Plan - Diagnosis (1) DKA, type 1 Qualifiers: Diabetes mellitus complication detail: without coma Qualified Code(s): E10.10 - Type 1 diabetes mellitus with ketoacidosis without coma Is this a current diagnosis for this admission?: Yes Plan: Continue aggressive IVF and insulin IV (2) Dehydration Is this a current diagnosis for this admission?: Yes Plan: Cont aggressive IV fluid resuscitation (3) Morbid obesity Is this a current diagnosis for this admission?: Yes - Time Time Spent with patient: 15-24 minutes Medications reviewed and adjusted accordingly: Yes Anticipated discharge: Home Within: within 72 hours - Plan Summary 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
[2017-07-28] MEDS: LANSOPRAZOLE 30 MG TAB.RAP.DR PO SCH (14:20)
[2017-07-28] MEDS: NORMAL SALINE 1000 ML 1,000 ML IV PRN ×2 (15:40→22:14)
[2017-07-28] MEDS: INSULIN, REGULAR 100 UNIT/100 ML NORMAL SALINE IV PRN ×4 (15:40→19:27)
[2017-07-28] MEDS ORDERED: OXYCODONE-ACETAMINOPHEN 5-325 MG TABLET ONE (16:18)
[2017-07-28] MEDS ORDERED: OXYCODONE-ACETAMINOPHEN 5-325 MG TABLET PO PRN (16:30)
[2017-07-28] MEDS ORDERED: OXYCODONE-ACETAMINOPHEN 5-325 MG TABLET PO ONE (16:45)
[2017-07-28 20:49] LABS: ANION GAP 9 (5-19); BLOOD UREA NITROGEN 4 mg/dL (7-20); CALCIUM 9.1 mg/dL (8.4-10.2); CARBON DIOXIDE 23 mmol/L (22-30); CHLORIDE 104 mmol/L (98-107); GLUCOSE 215 mg/dL (75-110); POTASSIUM 3.4 mmol/L (3.6-5.0)
[2017-07-28] MEDS ORDERED: HUM INSULIN NPH/REG INSULIN HM 100 UNIT/1 ML 3 ML SUBCUT ONE (21:30)
[2017-07-29] MEDS: NORMAL SALINE 1000 ML 1,000 ML IV PRN ×2 (05:53→17:10)
[2017-07-29] MEDS: LANSOPRAZOLE 30 MG TAB.RAP.DR PO SCH (05:53)
[2017-07-29 07:11] LABS: ANION GAP 15 (5-19); BLOOD UREA NITROGEN 6 mg/dL (7-20); CALCIUM 9.2 mg/dL (8.4-10.2); CARBON DIOXIDE 21 mmol/L (22-30); CHLORIDE 100 mmol/L (98-107); GLUCOSE 323 mg/dL (75-110)
[2017-07-29] MEDS: INSULIN LISPRO 100 UNIT/ML 3 ML VIAL SUBCUT PRN ×4 (09:17→22:55)
[2017-07-29] MEDS: ENOXAPARIN SODIUM INJ 40 MG/0.4 ML DISP.SYRIN SUBCUT SCH (09:17)
[2017-07-29] MEDS ORDERED: HUM INSULIN NPH/REG INSULIN HM 100 UNIT/1 ML 3 ML SUBCUT SCH (10:00)
--- NOTE | 2017-07-29 16:35 | PDOC PROGRESS REPORT ---
Subjective Progress Note for:: 07/29/17 Subjective:: Patient admitted with DKA, new onset diabetic Reason For Visit: DKA,NEW ONSET Physical Exam Vital Signs: Temp Pulse Resp BP Pulse Ox 97.5 F 117 H 19 152/106 H 97 07/29/17 11:07 07/29/17 11:07 07/29/17 11:07 07/29/17 11:07 07/29/17 11:07 Intake & Output 07/28/17 07/29/17 07/30/17 06:59 06:59 06:59 Intake Total 5901 Output Total 3100 Balance 2801 Weight 193.9 kg 193.9 kg General appearance: PRESENT: no acute distress, morbidly obese, well-developed Head exam: PRESENT: atraumatic Eye exam: PRESENT: conjunctiva pink, EOMI, PERRLA. ABSENT: scleral icterus Respiratory exam: PRESENT: clear to auscultation jose e. ABSENT: rales, rhonchi, wheezes Cardiovascular exam: PRESENT: RRR. ABSENT: diastolic murmur, rubs, systolic murmur GI/Abdominal exam: PRESENT: normal bowel sounds, soft. ABSENT: distended, guarding, mass, organolmegaly, rebound, tenderness Rectal exam: PRESENT: deferred Extremities exam: PRESENT: full ROM. ABSENT: calf tenderness, clubbing, pedal edema Neurological exam: PRESENT: alert, awake, oriented to person, oriented to place , oriented to time, oriented to situation, CN II-XII grossly intact. ABSENT: motor sensory deficit Results Laboratory Results: 07/28/17 06:03 07/29/17 06:14 07/28/17 07/29/17 20:12 06:14 Sodium 136.0 L 136.0 L Potassium 3.4 L 4.0 Chloride 104 100 Carbon Dioxide 23 21 L Anion Gap 9 15 BUN 4 L 6 L Creatinine 0.56 0.62 Est GFR ( Amer) > 60 > 60 Est GFR (Non-Af Amer) > 60 > 60 Glucose 215 H 323 H Calcium 9.1 9.2 Assessment & Plan - Diagnosis (1) DKA, type 1 Qualifiers: Diabetes mellitus complication detail: without coma Qualified Code(s): E10.10 - Type 1 diabetes mellitus with ketoacidosis without coma Is this a current diagnosis for this admission?: Yes Plan: His anion gap has closed and patient is off insulin drip (2) Dehydration Is this a current diagnosis for this admission?: Yes Plan: Secondary to hyperglycemia (3) Morbid obesity Is this a current diagnosis for this admission?: Yes (4) Diabetes mellitus Qualifiers: Diabetes mellitus type: type 1 Is this a current diagnosis for this admission?: Yes Plan: Newly diagnosed. Dedicated Jerome has been consulted. Patient has been given information and has been advised on the need to lose weight as well as to prevent as much as possible about his illness. He will likely require insulin treatment as he is morbidly obese and likely has insulin resistance category planner has been consulted also to help him with his medications (5) Hypokalemia Is this a current diagnosis for this admission?: Yes Plan: This is due to insulin deficiency. This has been corrected (6) Hyponatremia with extracellular fluid depletion Is this a current diagnosis for this admission?: Yes Plan: Secondary to hypoglycemia this is also corrected. - Time Time Spent with patient: 15-24 minutes Medications reviewed and adjusted accordingly: Yes Anticipated discharge: Home Within: within 48 hours - Inpatient Certification Based on my medical assessment, after consideration of the patient's comorbidities, presenting symptoms, or acuity I expect that the services needed warrant INPATIENT care.: Yes Medical Necessity: Need Close Monitoring Due to Risk of Patient Decompensation, Risk of Complication if Not Cared For in Hospital
[2017-07-29] MEDS: HUM INSULIN NPH/REG INSULIN HM 100 UNIT/1 ML 3 ML SUBCUT SCH (17:09)
[2017-07-30] MEDS: LANSOPRAZOLE 30 MG TAB.RAP.DR PO SCH (05:37)
[2017-07-30] MEDS: INSULIN LISPRO 100 UNIT/ML 3 ML VIAL SUBCUT PRN ×4 (07:40→22:07)
[2017-07-30] MEDS: HUM INSULIN NPH/REG INSULIN HM 100 UNIT/1 ML 3 ML SUBCUT SCH (10:26)
[2017-07-30] MEDS: ENOXAPARIN SODIUM INJ 40 MG/0.4 ML DISP.SYRIN SUBCUT SCH (10:26)
--- NOTE | 2017-07-30 13:43 | PDOC PROGRESS REPORT ---
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 Patient is pretty motivated. He is also aware that he needs to lose weight. He has been referred to the discharge plan and I believe he has been given appropriate papers so that he could hopefully qualify for Medicaid Patient's blood sugar is still in the 300s although increased to 7030 yesterday. Is still also given about 10 units of Humalog in between. I have discussed the need for this patient to have a primary care physician set up as well as to have his medications in place at least for the next month or so or device visible before we can discharge him with the planner internship. I will change his insulin to Lantus with further adjustment as needed. Reason For Visit: DKA,NEW ONSET Physical Exam Vital Signs: Temp Pulse Resp BP Pulse Ox 97.9 F 100 20 134/74 H 98 07/30/17 11:15 07/30/17 11:15 07/30/17 11:15 07/30/17 11:15 07/30/17 11:15 Intake & Output 07/29/17 07/30/17 07/31/17 06:59 06:59 06:59 Intake Total 5901 4624 Output Total 3100 Balance 2801 4624 Weight 193.9 kg 185.8 kg General appearance: PRESENT: no acute distress, morbidly obese, well-nourished Head exam: PRESENT: atraumatic Eye exam: PRESENT: conjunctiva pink, EOMI, PERRLA. ABSENT: scleral icterus Ear exam: PRESENT: bleeding Neck exam: ABSENT: carotid bruit, JVD, lymphadenopathy, thyromegaly Respiratory exam: PRESENT: clear to auscultation jose e. ABSENT: rales, rhonchi, wheezes Cardiovascular exam: PRESENT: RRR. ABSENT: diastolic murmur, rubs, systolic murmur GI/Abdominal exam: PRESENT: normal bowel sounds, soft. ABSENT: distended, guarding, mass, organolmegaly, rebound, tenderness Rectal exam: PRESENT: deferred Extremities exam: PRESENT: full ROM. ABSENT: calf tenderness, clubbing, pedal edema Neurological exam: PRESENT: alert, awake, oriented to person, oriented to place , oriented to time, oriented to situation, CN II-XII grossly intact. ABSENT: motor sensory deficit Psychiatric exam: PRESENT: appropriate affect Results Laboratory Results: 07/28/17 06:03 07/29/17 06:14 Assessment & Plan - Diagnosis (1) DKA, type 1 Qualifiers: Diabetes mellitus complication detail: without coma Qualified Code(s): E10.10 - Type 1 diabetes mellitus with ketoacidosis without coma Is this a current diagnosis for this admission?: Yes Plan: Resolved (2) Dehydration Is this a current diagnosis for this admission?: Yes Plan: Secondary to hyperglycemia. Resolved (3) Morbid obesity Is this a current diagnosis for this admission?: Yes Plan: Patient has been advised on the need to lose weight and he voices understanding (4) Diabetes mellitus Qualifiers: Diabetes mellitus type: type 1 Is this a current diagnosis for this admission?: Yes Plan: Newly diagnosed. He will likely require insulin treatment as he is morbidly obese and likely has insulin resistance shoe lay out planner has been consulted also to help him with his medications (5) Hypokalemia Is this a current diagnosis for this admission?: Yes Plan: This is due to insulin deficiency. This has been corrected (6) Hyponatremia with extracellular fluid depletion Is this a current diagnosis for this admission?: Yes Plan: Secondary to hyperglycemia this is also corrected. - Time Time Spent with patient: 15-24 minutes Medications reviewed and adjusted accordingly: Yes Anticipated discharge: Home Within: within 24 hours - Inpatient Certification Based on my medical assessment, after consideration of the patient's comorbidities, presenting symptoms, or acuity I expect that the services needed warrant INPATIENT care.: Yes Medical Necessity: Risk of Complication if Not Cared For in Hospital
[2017-07-30] MEDS: INSULIN LISPRO 100 UNIT/ML 3 ML VIAL SUBCUT SCH (16:47)
[2017-07-30] MEDS ORDERED: HUM INSULIN NPH/REG INSULIN HM 100 UNIT/1 ML 3 ML SUBCUT SCH (18:00)
[2017-07-31] MEDS: LANSOPRAZOLE 30 MG TAB.RAP.DR PO SCH (06:27)
[2017-07-31] MEDS: INSULIN LISPRO 100 UNIT/ML 3 ML VIAL SUBCUT SCH ×3 (08:16→16:54)
[2017-07-31] MEDS: INSULIN LISPRO 100 UNIT/ML 3 ML VIAL SUBCUT PRN ×3 (08:16→16:55)
[2017-07-31] MEDS: ENOXAPARIN SODIUM INJ 40 MG/0.4 ML DISP.SYRIN SUBCUT SCH (09:51)
[2017-07-31] MEDS ORDERED: HUM INSULIN NPH/REG INSULIN HM 100 UNIT/1 ML 3 ML SUBCUT SCH (10:00)
--- NOTE | 2017-07-31 11:31 | PDOC DISCHARGE SUMMARY ---
General - Admit/Disc Date/PCP Admission Date/Primary Care Provider: 07/27/17 18:10 Discharge Date: 07/31/17 - Additional Information Resuscitation Status: Full Code Home Medications: No Home Medications 07/27/17 History of Present Illness History of Present Illness: ELMER STUART is a 21 year old male admitted with abdominal pain nausea vomiting found to have severe metabolic acidosis secondary to unknown diabetes. Admitted to a monitored bed with serial chemistries, IV fluids insulin and electrolyte repletion. He is received education and optimization of his current insulin requirements. Tolerating p.o. gap closed stable and improved for discharge. Hospital Course Hospital Course: ELMER STUART is a 21 year old male admitted with abdominal pain nausea vomiting found to have severe metabolic acidosis secondary to unknown diabetes. Admitted to a monitored bed with serial chemistries, IV fluids insulin and electrolyte repletion. He is received education and optimization of his current insulin requirements. Tolerating p.o. gap closed stable and improved for discharge. Physical Exam Vital Signs: Temp Pulse Resp BP Pulse Ox 98.1 F 108 H 20 135/100 H 98 07/31/17 08:00 07/31/17 08:00 07/31/17 08:00 07/31/17 08:00 07/31/17 08:00 Intake & Output 07/29/17 07/30/17 07/31/17 11:59 11:59 11:59 Intake Total 3401 4624 3748 Output Total 1100 Balance 2301 4624 3748 Weight 193.9 kg 185.8 kg 197.2 kg General appearance: PRESENT: no acute distress, well-developed, well-nourished Head exam: PRESENT: atraumatic, normocephalic Eye exam: PRESENT: conjunctiva pink, EOMI, PERRLA. ABSENT: scleral icterus Ear exam: PRESENT: normal external ear exam Mouth exam: PRESENT: moist, tongue midline Neck exam: ABSENT: carotid bruit, JVD, lymphadenopathy, thyromegaly Respiratory exam: PRESENT: clear to auscultation jose e. ABSENT: rales, rhonchi, wheezes Cardiovascular exam: PRESENT: RRR. ABSENT: diastolic murmur, rubs, systolic murmur Pulses: PRESENT: normal dorsalis pedis pul Vascular exam: PRESENT: normal capillary refill GI/Abdominal exam: PRESENT: normal bowel sounds, soft. ABSENT: distended, guarding, mass, organolmegaly, rebound, tenderness Rectal exam: PRESENT: deferred Extremities exam: PRESENT: full ROM. ABSENT: calf tenderness, clubbing, pedal edema Neurological exam: PRESENT: alert, awake, oriented to person, oriented to place , oriented to time, oriented to situation, CN II-XII grossly intact. ABSENT: motor sensory deficit Psychiatric exam: PRESENT: appropriate affect, normal mood. ABSENT: homicidal ideation, suicidal ideation Skin exam: PRESENT: dry, intact, warm. ABSENT: cyanosis, rash Results Laboratory Results: 07/28/17 06:03 07/29/17 06:14 Qualifiers - * PATEINT BEING DISCHARGED WITH ANY OF THE FOLLOWING DIAGNOSIS?: No Plan Discharge Plan: ELMER STUART is a 21 year old male admitted with abdominal pain nausea vomiting found to have severe metabolic acidosis secondary to unknown diabetes. Admitted to a monitored bed with serial chemistries, IV fluids insulin and electrolyte repletion. He is received education and optimization of his current insulin requirements. Tolerating p.o. gap closed stable and improved for discharge. Diabetic diet, insulin 7030 30 units subcu twice daily with sliding scale Humalog q. before meals. [facility] with glucometer results. Time Spent: Less than 30 Minutes
[2017-07-31 16:06] VITALS: BP 135/100
== END 2017-07-31 17:40 | disposition home or self-care (01) | DRG 638 ==
LOC: ER 14:13 → EH 18:10 → 4N 07-28 12:46
PROVIDERS: ADMIT Family Medicine; ATTEND Family Medicine
DX: E10.10 Type 1 diabetes mellitus with ketoacidosis without coma (principal); Z68.44 Body mass index [BMI] 60.0-69.9, adult; E66.01 Morbid (severe) obesity due to excess calories; E87.1 Hypo-osmolality and hyponatremia; M54.5 Low back pain; E87.6 Hypokalemia; E86.0 Dehydration; Z83.3 Family history of diabetes mellitus; Z82.49 Family history of ischemic heart disease and other diseases of the circulatory system
CPT/HCPCS: 36415; 80048; 80053; 81001; 82962; 83735; 84100; 85025; 96360; 99285; J1650; J1815; J2405; J3480; J7030; J7620

== ENCOUNTER 2017-10-03 08:14 | Emergency (ER) | payer SELFPAY ==
--- NOTE | 2017-10-03 08:37 | ER Document Report ---
ED General - General Chief Complaint: Shoulder Pain Stated Complaint: SHOULDER PAIN Time Seen by Provider: 10/03/17 08:35 Mode of Arrival: Ambulatory Information source: Patient TRAVEL OUTSIDE OF THE [place] IN LAST 30 DAYS: No - HPI Notes: 22-year-old male presents to ER today for complaints of left shoulder pain that has been occurring for the last several years but has become progressively worse over the last 2 days. Pain is 6 out of 10, throbbing achy. Worse in the morning better as the day goes on. Has not tried any [id number] medications for pain. Denies any trauma to shoulder. 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 Has not tried any heat or icing shoulder. Denies fevers, chills, chest pain,palpitations, shortness of breath, dyspnea, nausea , vomiting, diarrhea, abdominal pain, hematuria,blurred vision, double vision, loss of vision, speech changes, LH, dizziness, syncope, headaches, wheezing, ST , URI, neck pain, weakness, bowel or bladder dysfunction, saddle anesthesia, numbness or tingling in bilateral upper or lower extremities equally, muscle paralysis, weakness in bilateral upper or lower extremities equally or rash. Denies IV drug use. - Related Data Allergies/Adverse Reactions: No Known Allergies Allergy (Verified 07/28/17 16:20) Past Medical History - General Information source: Patient - Social History Smoking Status: Unknown if Ever Smoked Family History: None, DM, Hypertension, Other - gout Renal/ Medical History: Denies: Hx Peritoneal Dialysis - Immunizations Hx Diphtheria, Pertussis, Tetanus Vaccination: Yes Review of Systems - Review of Systems Constitutional: No symptoms reported EENT: No symptoms reported Cardiovascular: No symptoms reported Respiratory: No symptoms reported Gastrointestinal: No symptoms reported Genitourinary: No symptoms reported Male Genitourinary: No symptoms reported Musculoskeletal: See HPI Skin: No symptoms reported Hematologic/Lymphatic: No symptoms reported Neurological/Psychological: No symptoms reported Physical Exam - Vital signs Vitals: Temp Pulse Resp BP Pulse Ox 97.9 F 96 18 169/88 H 95 10/03/17 08:19 10/03/17 08:19 10/03/17 08:19 10/03/17 08:19 10/03/17 08:19 - Notes Notes: PHYSICAL EXAMINATION: GENERAL: Well-appearing, well-nourished and in no acute distress. HEAD: Atraumatic, normocephalic. EYES: Pupils equal round and reactive to light, extraocular movements intact, sclera anicteric, conjunctiva are normal. ENT: Nares patent, oropharynx clear without exudates. Moist mucous membranes. NECK: Normal range of motion, supple without lymphadenopathy LUNGS: Breath sounds clear to auscultation bilaterally and equal. No wheezes rales or rhonchi. HEART: Regular rate and rhythm without murmurs ABDOMEN: Soft, nontender, nondistended abdomen. No guarding, no rebound. No masses appreciated. Musculoskeletal: Normal range of motion, no pitting or edema. No cyanosis. left shoulder pain with abduction and flexion. no pain with supination, pronation, extension. 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 APROM in shoulder. DTR + 2 in BUE equally. Noted crepitus with APROM in elbow. negative drop arm, neer sign, mcfadden test bilaterally. slightly positive impingement sign all on let. No vascular compromise. Neck with full APROM, no cervical spinal tenderness. No tenderness over clavicles or step off noted bilaterally. Strength 5 out of 5 in bilateral upper extremities equally. NEUROLOGICAL: Cranial nerves grossly intact. Normal speech, normal gait. Normal sensory, motor exams PSYCH: Normal mood, normal affect. SKIN: Warm, Dry, normal turgor, no rashes or lesions noted. 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 X-ray of left shoulder negative for any acute fracture dislocation. Discussed with patient the importance of applying heat 20 minutes on 20 minutes off several times a day, sling applied discussed importance of immobilization. Take ibuprofen and Tylenol as needed for pain. Follow-up with alternative financing specialist within 1 week. Work note given. I have reevaluated this patient multiple times and no significant life threatening changes, no signs of toxicity, sepsis or peritonitis are noted. The patient and I have discussed the diagnosis and risks, and we agree with discharging home and close follow-up. We also discussed returning to the Emergency Department immediately if new or worsening symptoms occur with the understanding that symptoms and presentations can change. At this time will discharge with return precautions and follow-up recommendations. Verbal discharge instructions given a the bedside and opportunity for questions given. We have discussed the symptoms which are most concerning (e.g., stiff neck, saddle anesthesia, urinary or bowel incontinence or retention, changing or worsening pain) that necessitate immediate return. Medication warnings reviewed. Patient is in agreement with this plan and has verbalized understanding of return precautions and the need for primary care follow-up in the next 24-72 hours. Patient verbalized understanding of plan of care and agree with plan of care. - Vital Signs Vital signs: Temp Pulse Resp BP Pulse Ox 97.9 F 96 18 148/98 H 95 10/03/17 08:19 10/03/17 08:19 10/03/17 08:19 10/03/17 09:43 10/03/17 08:19 Discharge - Discharge Clinical Impression: Left shoulder pain Qualifiers: Chronicity: acute Qualified Code(s): M25.512 - Pain in left shoulder Sprain of shoulder, left Qualifiers: Encounter type: initial encounter Condition: Good Disposition: HOME, SELF-CARE Instructions: Exercise Program for the Shoulder ([facility]), Shoulder Injury ([facility]) Additional Instructions: Ice & Elevation Apply ice packs frequently against the painful area. Many different schedules are recommended, such as "20 minutes on, 20 minutes off" or "one hour ice, two hours rest." If you need to work, you may need to go longer between ice treatments. You should plan to have the area ice packed AT LEAST one- fourth of the time. The ice should be applied over the wrap, tape, or splint, or over a layer of cloth -- not directly against the skin. Some ice bags have a built-in cloth and can be put directly on the skin. Your injured part should be elevated as much as possible over the next 48 hours. Try to keep the injury above the level of the heart. Avoid use of the injured area. Elevation and rest will decrease the swelling. Sling to be Used You are to use a sling. This is to rest the area, and to prevent it from hanging downward. Use this sling for at least 48 hours (or longer if so instructed by the doctor). Some types of splints will break if not supported by the sling, so the sling must be used as long as the splint. Ice can be placed inside the sling over the injured area. Once you remove the sling, you should not encounter pain when you use the arm and hand. If you do feel pain beneath the cast or splint, you must continue use of the sling. Please follow up with the Orthopedics [facility] [address] [place], [place] [id number] X-rays are negative for any acute fracture or dislocation of the shoulder. Rice therapy. Wear sling as directed. Take [id number] Tylenol and prescription ibuprofen as directed and needed. Follow-up with alternative financing specialist within 1 week. Return immediately for any new or worsening symptoms. Follow up with primary care provider, call tomorrow to make followup appointment. Prescriptions: Ibuprofen 600 mg PO QIDP PRN #20 tablet PRN Reason: Forms: Return to Work Referrals: PERRI LAMB MD [ACTIVE STAFF] - Follow up in 1 week SID MARI MD [ACTIVE STAFF] - Follow up as needed
[2017-10-03 09:44] VITALS: BP 148/98
--- NOTE | 2017-10-03 09:44 | RADIOLOGY REPORT (SQ) ---
EXAM DESCRIPTION: SHOULDER LEFT 2 OR MORE VIEWS COMPLETED DATE/TIME: 10/03/2017 8:52 am REASON FOR STUDY: new onset left shoulder pain COMPARISON: None. NUMBER OF VIEWS: Four views TECHNIQUE: Trans axillary, Internal rotation, external rotation, and Y view images acquired of the l eft shoulder. LIMITATIONS: None. FINDINGS: MINERALIZATION: Normal. BONES: No acute fracture or dislocation. No worrisome bone lesions. JOINTS: Normal glenohumeral alignment on trans axillary view. No widening at the AC joint. VISUALIZED LUNGS AND RIBS: No pneumothorax. No rib fracture. SOFT TISSUES: No radiopaque foreign body. OTHER: No other significant finding. IMPRESSION: NEGATIVE STUDY OF THE LEFT SHOULDER. NO RADIOGRAPHIC EVIDENCE OF ACUTE INJURY. TECHNICAL DOCUMENTATION: JOB ID: [id number] [employer]- All Rights Reserved Reading location - IP/workstation name: [facility]
== END 2017-10-03 09:58 | disposition home or self-care (01) ==
LOC: ER 08:14
DX: M25.512 Pain in left shoulder (principal)
CPT/HCPCS: 99283

== ENCOUNTER 2017-10-06 18:42 | Emergency (ER) | payer OTHER ==
[2017-10-06 18:52] VITALS: BP 132/83
--- NOTE | 2017-10-06 19:32 | ER Document Report ---
HPI - HPI Patient complains to provider of: Left shoulder injury Onset: Yesterday Onset/Duration: Sudden Pain Level: 4 Context: 22 yo male felt pop in left shoulder with heavy lifting at work yeaterday, was seen in er on the for similar pain but it got better until yesterady, the xray was negative. . hurts despite motrin needs more time off work. 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 IN LAST 30 DAYS: No - HEENT HEENT: Pharyngeal Tenderness - NECK Neck: Supple - MUSCULOSKELETAL/EXTREMETIES Musculoskeletal/Extremeties: FROM, Tender - left shoulder muscles, not bone - NEURO Level of Consciousness: Awake, Alert Motor/Sensory: No Motor Deficit, No Sensory Deficit - DERM Integumentary: No Rash Course - Vital Signs Vital signs: Temp Pulse Resp BP Pulse Ox 99.3 F 105 H 22 H 132/83 H 97 10/06/17 18:49 10/06/17 18:49 10/06/17 18:49 10/06/17 18:49 10/06/17 18:49 Discharge - Discharge Clinical Impression: Left shoulder strain Condition: Good Disposition: HOME, SELF-CARE Instructions: Acetaminophen, Ibuprofen (General) ([facility]), Sling to be Used ([facility]) , Warm Packs ([facility]) Additional Instructions: Warm compress Use the sling Tylenol up to 4000 mg per day See the orthopedic doctor for follow-up Prescriptions: Ibuprofen [Motrin 800 mg Tablet] 800 mg PO Q8HP PRN #30 tablet PRN Reason: Forms: Return to Work Referrals: PERRI LAMB MD [ACTIVE STAFF] - Follow up as needed
[2017-10-06] MEDS ORDERED: IBUPROFEN 800 MG TABLET PO ONE (19:37)
[2017-10-06] MEDS ORDERED: ACETAMINOPHEN 325 MG TABLET PO ONE (19:37)
== END 2017-10-06 19:57 | disposition home or self-care (01) ==
LOC: ER 18:42
DX: S46.912A Strain of unspecified muscle, fascia and tendon at shoulder and upper arm level, left arm, initial encounter (principal); X50.0XXA Overexertion from strenuous movement or load, initial encounter; Y99.0 Civilian activity done for income or pay; E11.9 Type 2 diabetes mellitus without complications
CPT/HCPCS: 99283

== ENCOUNTER 2018-03-15 08:31 | Emergency (ER) | payer SELFPAY ==
[2018-03-15] MEDS ORDERED: ONDANSETRON HCL INJ/PF 4 MG/2 ML SDV IV ONE (09:28)
[2018-03-15] MEDS ORDERED: NORMAL SALINE 1000 ML 1,000 ML IV ONE (09:28)
[2018-03-15 10:14] LABS: APPEARANCE,URINE CLEAR; BILIRUBIN,URINE NEGATIVE (NEGATIVE); COLOR,URINE YELLOW; GLUCOSE, URINE NEGATIVE (NEGATIVE); KETONES,URINE NEGATIVE (NEGATIVE); LEUKOCYTE ESTERASE,URINE NEGATIVE (NEGATIVE); NITRITE,URINE NEGATIVE (NEGATIVE); PROTEIN,URINE NEGATIVE (NEGATIVE); URINE SPECIFIC GRAVITY 1.013; UROBILINOGEN,URINE NEGATIVE mg/dL (<2.0)
[2018-03-15 10:46] LABS: ABSOLUTE EOSINOPHILS # (AUTO) 0.1 10^3/uL (0.0-0.6); ABSOLUTE LYMPHOCYTES (AUTO) 2.6 10^3/uL (0.5-4.7); ABSOLUTE MONOCYTES (AUTO) 0.7 10^3/uL (0.1-1.4); ABSOLUTE NEUT (AUTO) 6.2 10^3/uL (1.7-8.2); BASOPHILS % (AUTO) 0.3 % (0-2); EOSINOPHILS % (AUTO) 1.5 % (0-6); HEMATOCRIT 38.4 % (37.9-51.0); HEMOGLOBIN 12.3 g/dL (13.5-17.0); LYMPHOCYTES % (AUTO) 26.7 % (13-45); MEAN CORPUSCULAR HEMOGLOBIN 22.5 pg (27.0-33.4); MEAN CORPUSCULAR HGB CONC 31.9 g/dL (32.0-36.0); MEAN CORPUSCULAR VOLUME 71 fl (80-97); MONOCYTES % (AUTO) 7.1 % (3-13); PLATELET COUNT 340 10^3/uL (150-450); RED BLOOD COUNT 5.44 10^6/uL (4.35-5.55); RED CELL DISTRIBUTION WIDTH 16.7 % (11.5-14.0); SEGMENTED NEUTROPHILS % (AUTO) 64.4 % (42-78); TOTAL CELLS COUNTED % (AUTO) 100 %; WHITE BLOOD COUNT 9.6 10^3/uL (4.0-10.5)
[2018-03-15 11:02] LABS: ALANINE AMINOTRANSFERASE 27 U/L (21-72); ALBUMIN 3.9 g/dL (3.5-5.0); ALKALINE PHOSPHATASE 80 U/L (38-126); ANION GAP 10 (5-19); ASPARTATE AMINO TRANSFERASE 15 U/L (17-59); BILIRUBIN,DIRECT 0.1 mg/dL (0.0-0.4); BILIRUBIN,TOTAL 0.4 mg/dL (0.2-1.3); BLOOD UREA NITROGEN 9 mg/dL (7-20); CALCIUM 9.4 mg/dL (8.4-10.2); CARBON DIOXIDE 29 mmol/L (22-30); CHLORIDE 103 mmol/L (98-107); GLUCOSE 127 mg/dL (75-110); LIPASE 58.6 U/L (23-300); POTASSIUM 4.4 mmol/L (3.6-5.0); SODIUM 142.1 mmol/L (137-145); TOTAL PROTEIN 6.8 g/dL (6.3-8.2)
--- NOTE | 2018-03-15 11:37 | ER Document Report ---
ED General - General Chief Complaint: Nausea/Vomiting/Diarrhea Stated Complaint: STOMACH PAIN, DIARRHEA Time Seen by Provider: 03/15/18 09:02 TRAVEL OUTSIDE OF THE [place] IN LAST 30 DAYS: No - HPI Patient complains to provider of: Diarrhea Onset: Other - Here is a 22-year-old type I diabetic with morbid obesity that presents for evaluation of nausea and diarrhea over the last 2-3 days he is also had a an episode of vomiting or 2. He states that he was sent home from work because of it, denies fevers or chills, endorses some abdominal discomfort , denies chest pain, shortness of breath, palpitations, diaphoresis or other symptoms he has been using his insulin as directed and it has been helpful. States that this is somewhat similar to when he was diagnosed with diabetes in the past though his blood sugars have been normal when being checked. - Related Data Allergies/Adverse Reactions: No Known Allergies Allergy (Verified 07/28/17 16:20) Past Medical History - General Information source: Patient - Social History Smoking Status: Never Smoker Frequency of alcohol use: None Drug Abuse: None Family History: None, DM, Hypertension, Other - gout Patient has suicidal ideation: No Patient has homicidal ideation: No Endocrine Medical History: Reports: Hx Diabetes Mellitus Type 2 - recently diagnosed abut 1 month ago, august 2017 Renal/ Medical History: Denies: Hx Peritoneal Dialysis - Immunizations Hx Diphtheria, Pertussis, Tetanus Vaccination: Yes Review of Systems - Review of Systems -: Yes All other systems reviewed and negative Physical Exam - Vital signs Vitals: Temp Pulse BP Pulse Ox 98.0 F 87 153/99 H 99 03/15/18 08:44 03/15/18 08:44 03/15/18 08:44 03/15/18 08:44 - General General appearance: Appears well In distress: None - HEENT Head: Normocephalic, Atraumatic Eyes: Normal Pupils: PERRL - Respiratory Respiratory status: No respiratory distress Chest status: Nontender Breath sounds: Normal Chest palpation: Normal - Cardiovascular Rhythm: Regular Heart sounds: Normal auscultation Murmur: No - Abdominal Inspection: Morbidly Obese Distension: No distension Bowel sounds: Normal Tenderness: Nontender Organomegaly: No organomegaly - Back Back: Normal - Extremities General upper extremity: Normal inspection, Nontender, Normal strength, Normal temperature General lower extremity: Normal inspection, Nontender, Normal strength, Normal temperature - Neurological Neuro grossly intact: Yes Cognition: Normal Orientation: AAOx4 Nathaniel Coma Scale Eye Opening: Spontaneous Nathaniel Coma Scale Verbal: Oriented [place] Coma Scale Motor: Obeys Commands Nathaniel Coma Scale Total: 15 Speech: Normal Motor strength normal: LUE, RUE, LLE, RLE Sensory: Normal - Psychological Associated symptoms: Normal affect, Normal mood Course - Re-evaluation Re-evalutation: 03/15/18 11:36 Type I insulin diabetic, 3 days of nausea and diarrhea. He is very well- appearing, is concerned that this may be related to his diabetes. His blood sugars however have been normal. We will obtain labs, monitoring and reassessment. CBC CMP and urinalysis are relatively unremarkable. The patient states that he feels okay with the administration of antiemetic, I believe that this patient may have a simple enteritis or other noninfectious diarrhea. We did speak about his weight very candidly I do believe that he would benefit from weight loss. plan for patient to undergo discharge with return precations. - Vital Signs Vital signs: Temp Pulse Resp BP Pulse Ox 98.3 F 83 18 164/106 H 98 03/15/18 11:38 03/15/18 11:38 03/15/18 11:38 03/15/18 11:38 03/15/18 11:38 - Laboratory Result Diagrams: 03/15/18 10:18 03/15/18 10:18 Laboratory results interpreted by me: 03/15/18 03/15/18 10:18 10:18 Hgb 12.3 L MCV 71 L MCH 22.5 L MCHC 31.9 L RDW 16.7 H Glucose 127 H AST 15 L Discharge - Discharge Clinical Impression: Nausea Diarrhea Qualifiers: Diarrhea type: unspecified type Qualified Code(s): R19.7 - Diarrhea, unspecified Condition: Good Disposition: HOME, SELF-CARE Instructions: Antinausea Medication ([facility]) Additional Instructions: He was seen today in the emergency department for your nausea and vomiting. He had evaluation including blood tests, urine test, there was no obvious abnormalities identified related to this. You should use the nausea medication prescribed to you as needed. You were given a work note as well. Please return for any worsening dizziness, lightheadedness, fevers, chills otherwise follow-up with your primary physician as previously directed. Prescriptions: Ondansetron [Zofran Odt 4 mg Tablet] 1 - 2 tab PO Q4H PRN #15 tab.rapdis PRN Reason: For Nausea/Vomiting Forms: Special Work Note
[2018-03-15 11:49] VITALS: BP 164/106
== END 2018-03-15 11:49 | disposition home or self-care (01) ==
LOC: ER 08:31
DX: R11.2 Nausea with vomiting, unspecified (principal); R19.7 Diarrhea, unspecified; R10.9 Unspecified abdominal pain; E10.9 Type 1 diabetes mellitus without complications; E66.01 Morbid (severe) obesity due to excess calories
CPT/HCPCS: 99284; 96361; 96374; 36415; 83690; 85025; 80053; 81001; J2405; J7030

== ENCOUNTER 2018-06-14 15:20 | Emergency (ER) | payer SELFPAY ==
[2018-06-14 15:31] VITALS: BP 150/87
[2018-06-14] MEDS ORDERED: PROCHLORPERAZINE EDISYLATE INJ 10 MG/2 ML VIAL IV ONE (16:31)
[2018-06-14] MEDS ORDERED: NORMAL SALINE 1000 ML 1,000 ML IV PRN (16:31)
[2018-06-14] MEDS ORDERED: ONDANSETRON HCL INJ/PF 4 MG/2 ML SDV IV ONE (16:31)
[2018-06-14] MEDS ORDERED: NORMAL SALINE 1000 ML 1,000 ML IV ONE (16:34)
[2018-06-14 17:07] LABS: ABSOLUTE EOSINOPHILS # (AUTO) 0.1 10^3/uL (0.0-0.6); ABSOLUTE LYMPHOCYTES (AUTO) 2.9 10^3/uL (0.5-4.7); ABSOLUTE MONOCYTES (AUTO) 0.8 10^3/uL (0.1-1.4); ABSOLUTE NEUT (AUTO) 7.5 10^3/uL (1.7-8.2); BASOPHILS % (AUTO) 0.2 % (0-2); EOSINOPHILS % (AUTO) 0.9 % (0-6); HEMATOCRIT 37.9 % (37.9-51.0); HEMOGLOBIN 12.2 g/dL (13.5-17.0); LYMPHOCYTES % (AUTO) 25.5 % (13-45); MEAN CORPUSCULAR HEMOGLOBIN 22.8 pg (27.0-33.4); MEAN CORPUSCULAR HGB CONC 32.1 g/dL (32.0-36.0); MEAN CORPUSCULAR VOLUME 71 fl (80-97); MONOCYTES % (AUTO) 6.8 % (3-13); PLATELET COUNT 326 10^3/uL (150-450); RED BLOOD COUNT 5.35 10^6/uL (4.35-5.55); RED CELL DISTRIBUTION WIDTH 17.6 % (11.5-14.0); SEGMENTED NEUTROPHILS % (AUTO) 66.6 % (42-78); TOTAL CELLS COUNTED % (AUTO) 100 %; WHITE BLOOD COUNT 11.3 10^3/uL (4.0-10.5)
[2018-06-14 17:23] LABS: ALBUMIN 3.8 g/dL (3.5-5.0); ANION GAP 6 (5-19); BLOOD UREA NITROGEN 11 mg/dL (7-20); CALCIUM 9.3 mg/dL (8.4-10.2); CARBON DIOXIDE 32 mmol/L (22-30); CHLORIDE 104 mmol/L (98-107); GLUCOSE 184 mg/dL (75-110); POTASSIUM 4.5 mmol/L (3.6-5.0); SODIUM 142.2 mmol/L (137-145)
[2018-06-14 17:24] LABS: ALANINE AMINOTRANSFERASE 38 U/L (21-72); ALKALINE PHOSPHATASE 80 U/L (38-126); ASPARTATE AMINO TRANSFERASE 17 U/L (17-59); BILIRUBIN,DIRECT 0.1 mg/dL (0.0-0.4); BILIRUBIN,TOTAL 0.2 mg/dL (0.2-1.3); LIPASE 121.3 U/L (23-300); TOTAL PROTEIN 6.7 g/dL (6.3-8.2)
--- NOTE | 2018-06-14 20:41 | ER Document Report ---
ED General - General Chief Complaint: Headache Stated Complaint: HEADACHE Time Seen by Provider: 06/14/18 16:35 TRAVEL OUTSIDE OF THE [place] 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 Patient states now is feeling unwell patient states he is able to tolerate p.o. Patient states he has not felt right since that time. Patient otherwise looks to be no obvious distress. Patient also concerned about 2 bumps one at the base of the neck the other one on the right side of his pain is. Patient states that been present for some toya e and is concerned what they may be. Patient otherwise states compliance with her medication denies any fevers chills nausea vomiting diarrhea in the last 24 hours. - Related Data Allergies/Adverse Reactions: No Known Allergies Allergy (Verified 07/28/17 16:20) Past Medical History - Social History Smoking Status: Unknown if Ever Smoked Chew tobacco use (# tins/day): No Frequency of alcohol use: Occasional Drug Abuse: None Family History: None, DM, Hypertension, Other - gout Patient has suicidal ideation: No Patient has homicidal ideation: No Endocrine Medical History: Reports: Hx Diabetes Mellitus Type 2 - recently diagnosed abut 1 month ago, august 2017 Renal/ Medical History: Denies: Hx Peritoneal Dialysis - Immunizations Hx Diphtheria, Pertussis, Tetanus Vaccination: Yes Review of Systems - Review of Systems Constitutional: No symptoms reported EENT: No symptoms reported Cardiovascular: No symptoms reported Respiratory: No symptoms reported Gastrointestinal: Diarrhea, Nausea, Vomiting Genitourinary: No symptoms reported Male Genitourinary: No symptoms reported Musculoskeletal: No symptoms reported Skin: No symptoms reported Hematologic/Lymphatic: No symptoms reported Neurological/Psychological: No symptoms reported Physical Exam - Vital signs Vitals: Temp Pulse Resp BP Pulse Ox 99.0 F 100 16 150/87 H 96 06/14/18 15:27 06/14/18 15:27 06/14/18 15:27 06/14/18 15:27 06/14/18 15:27 Interpretation: Normal - General General appearance: Appears well, Alert - HEENT Head: Normocephalic, Atraumatic Eyes: Normal Pupils: PERRL - Respiratory Respiratory status: No respiratory distress Chest status: Nontender Breath sounds: Normal Chest palpation: Normal - Cardiovascular Rhythm: Regular Heart sounds: Normal auscultation Murmur: No - Abdominal Inspection: Normal, Obese Distension: No distension Bowel sounds: Normal Tenderness: Nontender Organomegaly: No organomegaly - Back Back: Normal, Nontender - Extremities General upper extremity: Normal inspection, Nontender, Normal color, Normal ROM, Normal temperature General lower extremity: Normal inspection, Nontender, Normal color, Normal ROM, Normal temperature, Normal weight bearing. No: Ai's sign - Neurological Neuro grossly intact: Yes Cognition: Normal Orientation: AAOx4 [place] Coma Scale Eye Opening: Spontaneous Nathaniel Coma Scale Verbal: Oriented Nathaniel Coma Scale Motor: Obeys Commands Nathaniel Coma Scale Total: 15 Speech: Normal Motor strength normal: LUE, RUE, LLE, RLE Sensory: Normal - Psychological Associated symptoms: Normal affect, Normal mood - Skin Skin Temperature: Warm Skin Moisture: Dry Skin Color: Normal Notes: Patient with what looks to be a keloid at the base of the neck approximately T8 to at the top of the tattoo. Patient with freely mobile soft tissue density on the right side of his pannus consistent with a lipoma Course - Re-evaluation Re-evalutation: 06/14/18 20:40 Notified by nursing staff patient eloped from the triage waiting area laboratory studies were reviewed no signs of critical pathology - Vital Signs Vital signs: Temp Pulse Resp BP Pulse Ox 99.0 F 100 16 150/87 H 96 06/14/18 15:27 06/14/18 15:27 06/14/18 15:27 06/14/18 15:27 06/14/18 15:27 - Laboratory Result Diagrams: 06/14/18 16:46 06/14/18 16:46 Laboratory results interpreted by me: 06/14/18 06/14/18 06/14/18 15:28 16:46 16:46 WBC 11.3 H Hgb 12.2 L MCV 71 L MCH 22.8 L RDW 17.6 H Carbon Dioxide 32 H Glucose 184 H POC Glucose 196 H Discharge - Discharge Clinical Impression: Morbid obesity, Nausea vomiting and diarrhea, Keloid base of the neck, Lipoma right side of the abdomen Condition: Good Disposition: ELOPED
== END 2018-06-14 17:18 | disposition left against medical advice (07) ==
LOC: ER 15:20
DX: R51 Headache (principal); R11.2 Nausea with vomiting, unspecified; E66.01 Morbid (severe) obesity due to excess calories; R19.7 Diarrhea, unspecified; L91.0 Hypertrophic scar; D17.1 Benign lipomatous neoplasm of skin and subcutaneous tissue of trunk; E11.9 Type 2 diabetes mellitus without complications; Z79.4 Long term (current) use of insulin; Z53.20 Procedure and treatment not carried out because of patient's decision for unspecified reasons
CPT/HCPCS: 99281; 96361; 96374; 96375; 36415; 82962; 83690; 83735; 85025; 80053; J0780; J2405; J7030